=== PATIENT | male | born 1960 | race Two or more races ===

== ENCOUNTER 2020-07-23 10:57 | Emergency (ER) | payer SELFPAY ==
[~2020-07-23] VITALS: Ht 160 cm; Wt 54.5 kg
[2020-07-23 12:01] LABS: BILIRUBIN,URINE NEGATIVE (NEG); CLARITY,URINE CLEAR; COLOR,URINE YELLOW; NITRITE,URINE NEGATIVE (NEG); PH,URINE 5.5 (<5.0-8.0); PROTEIN,URINE NEGATIVE (NEG-TRACE); UROBILINOGEN,URINE 0.2 mg/dL (0.2 mg/dL)
[2020-07-23 12:13] LABS: BACTERIA,URINE FEW /HPF (0-FEW); RBC,URINE OCC /HPF (0-2)
--- NOTE | 2020-07-23 13:08 | RAD ---
Examination: CT ABDOMEN PELVIS WO CONTRAST History: bilateral flank pain / Comparison/Correlation: None Findings: Axial images of the abdomen and pelvis were obtained without contrast. Sagittal and coronal reformatted images were provided. The visualized lung bases are clear. Liver, spleen, pancreas, adrenal glands, and kidneys are normal. No enlarged abdominal or pelvic lymph nodes. Gallbladder fossa is unremarkable. No radiopaque collecting system calculi. Large quantity of stool involves the colon. Fecalization of the distal ileum and terminal ileum is evident. No bowel obstruction or extraluminal gas. Appendix is normal. No inflammation about the cecum or terminal ileum. Mild prostatomegaly noted. Urinary bladder is unremarkable. Bony structures unremarkable. Impression: Fecalization of the distal ileum and terminal ileum is present and may represent stasis. Moderate to large quantity of no acute inflammatory findings. No radiopaque lithiasis or infection. PQRS Compliance Statement: One or more of the following individualized dose reduction techniques were utilized for this examination: 1. Automated exposure control 2. Adjustment of the mA and/or kV according to patient size 3. Use of iterative reconstruction technique Electronically signed by: Clovis Rodriguez MD (07/23/2020 1:05 PM) [id number]
[2020-07-23] MEDS ORDERED: BISACODYL 5 MG TABLET.DR. PO STA (13:20)
[2020-07-23] MEDS ORDERED: KETOROLAC 30 MG/ML VIAL. IVP ONE (14:00)
[2020-07-23] MEDS ORDERED: MAGNESIUM CITRATE 296 ML SOLUTION. PO ONE (14:00)
--- NOTE | 2020-07-23 14:29 | PHYS DOC ---
Past Medical History Past Medical History: Unknown Past Surgical History: No Surgical History Smoking Status: Never Smoker Alcohol Use: Occasionally General Adult EDM: Chief Complaint: FLANK PAIN HPI: HPI: Patient is a 59 year old 5-year-old male patient who presents to the ED today complaining of bilateral flank pain rated as moderate that began 3 days ago. Patient denies anything specifically exacerbating or relieving the flank pain. Denies any nausea vomiting. 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 Review of Systems: Review of Systems: Constitutional: Denies fever or chills. [] Eyes: Denies change in visual acuity. [] HENT: Denies nasal congestion or sore throat. [] Respiratory: Denies cough or shortness of breath. [] Cardiovascular: Denies chest pain or edema. [] GI: Denies abdominal pain, nausea, vomiting, bloody stools or diarrhea. [] : Reports bilateral flank pain. Denies dysuria. [] Musculoskeletal: Denies back pain or joint pain. [] Integument: Denies rash. [] Neurologic: Denies headache, focal weakness or sensory changes. [] Psychiatric: Denies depression or anxiety. [] Heart Score: Risk Factors: Risk Factors: DM, Current or recent (<one month) smoker, HTN, HLP, family history of CAD, obesity. Risk Scores: Score 0 - 3: 2.5% MACE over next 6 weeks - Discharge Home Score 4 - 6: 20.3% MACE over next 6 weeks - Admit for Clinical Observation Score 7 - 10: 72.7% MACE over next 6 weeks - Early Invasive Strategies Current Medications: Current Medications Medications (Trade) Dose Ordered Sig/Sally Start Time Stop Time Status Last Admin Dose Admin Bisacodyl (Dulcolax Tab) 10 mg 1X STAT 07/23/20 13:20 07/23/20 13:23 DC 07/23/20 14:15 10 MG Ketorolac Tromethamine (Toradol 30mg Vial) 30 mg 1X ONCE 07/23/20 14:00 07/23/20 14:01 DC 07/23/20 14:16 30 MG Magnesium Citrate (Citroma) 296 ml 1X ONCE 07/23/20 14:00 07/23/20 14:01 DC 07/23/20 14:15 296 ML Allergies: Allergies: Allergies Coded Allergies Type Severity Reaction Last Updated Verified No Known Drug Allergies 07/23/20 No Physical Exam: PE: Constitutional: Well developed, well nourished, no acute distress, non-toxic appearance. [] HENT: Normocephalic, atraumatic, bilateral external ears normal, oropharynx moist, no oral exudates, nose normal. [] Eyes: PERRLA, EOMI, conjunctiva normal, no discharge. [] Neck: Normal range of motion, no tenderness, supple, no stridor. [] Cardiovascular:Heart rate regular rhythm, no murmur [] Lungs & Thorax: Bilateral breath sounds clear to auscultation [] Abdomen: Bowel sounds normal, soft, no tenderness, no masses, no pulsatile masses. [] Skin: Warm, dry, no erythema, no rash. [] Back: No tenderness, no CVA tenderness. [] Extremities: No tenderness, no cyanosis, no clubbing, ROM intact, no edema. [] Neurologic: Alert and oriented X 3, normal motor function, normal sensory function, no focal deficits noted. [] Psychologic: Affect normal, judgement normal, mood normal. [] Current Patient Data: Labs: Laboratory Tests Test 07/23/20 11:00 Urine Collection Type Unknown Urine Color Yellow Urine Clarity Clear Urine pH 5.5 (<5.0-8.0) Urine Specific [place] 1.025 (1.000-1.030) Urine Protein Negative mg/dL (NEG-TRACE) Urine Glucose (UA) Negative mg/dL (NEG) Urine Ketones (Stick) Negative mg/dL (NEG) Urine Blood Small (NEG) Urine Nitrite Negative (NEG) Urine Bilirubin Negative (NEG) Urine Urobilinogen Dipstick 0.2 mg/dL (0.2 mg/dL) Urine Leukocyte Esterase Negative (NEG) Urine RBC Occ /HPF (0-2) Urine WBC 1-4 /HPF (0-4) Urine Squamous Epithelial Cells Occ /LPF Urine Bacteria Few /HPF (0-FEW) Urine Mucus Marked /LPF Vital Signs: Vital Signs Date Time Temp Pulse Resp B/P (MAP) Pulse Ox O2 Delivery O2 Flow Rate FiO2 07/23/20 12:13 98.1 63 18 208/100 (136) 99 Room Air 98.1 EKG: EKG: [] Radiology/Procedures: Radiology/Procedures: []PROCEDURE: CT ABDOMEN PELVIS WO CONTRAST Examination: CT ABDOMEN PELVIS WO CONTRAST History: bilateral flank pain / Comparison/Correlation: None Findings: Axial images of the abdomen and pelvis were obtained without contrast. Sagittal and coronal reformatted images were provided. The visualized lung bases are clear. Liver, spleen, pancreas, adrenal glands, and kidneys are normal. No enlarged abdominal or pelvic lymph nodes. Gallbladder fossa is unremarkable. No radiopaque collecting system calculi. Large quantity of stool involves the colon. Fecalization of the distal ileum and terminal ileum is evident. No bowel obstruction or extraluminal gas. Appendix is normal. No inflammation about the cecum or terminal ileum. Mild prostatomegaly noted. Urinary bladder is unremarkable. Bony structures unremarkable. Impression: Fecalization of the distal ileum and terminal ileum is present and may represent stasis. Moderate to large quantity of no acute inflammatory findings. No radiopaque lithiasis or infection. RS Compliance Statement: One or more of the following individualized dose reduction techniques were utilized for this examination: 1. Automated exposure control 2. Adjustment of the mA and/or kV according to patient size 3. Use of iterative reconstruction technique Electronically signed by: Clovis Dempsey MD (07/23/2020 1:05 PM) [id number] DICTATED and SIGNED BY: CLOVIS DEMPSEY MD DATE: 07/23/20 1556 Course & Med Decision Making: Course & Med Decision Making Pertinent Labs and Imaging studies reviewed. (See chart for details) This is a 59-year-old male patient presenting to the ED today with bilateral flank pain that began 3 days ago. Urine analysis negative for infection, CT of the abdomen and pelvic was noted for moderate constipation. Patient was given mag citrate and Dulcolax. Educated on constipation prevention as well as management. Follow-up with his own PCP in 1 to 2 weeks. Rach Disclaimer: Rach Disclaimer: This electronic medical record was generated, in whole or in part, using a voice recognition dictation system. Departure Departure Impression: Primary Impression: Constipation Qualified Codes: K59.00 - Constipation, unspecified Disposition: 01 DC HOME SELF CARE/HOMELESS Condition: STABLE Referrals: NO PCP (PCP) MERY COOPER MD follow up in one week Patient Instructions: Constipation, Adult, [id number] Additional Instructions: You were evaluated in the emergency room and noted to be very constipated. Please increase your dietary fiber intake as well as water intake. Consider taking MiraLAX every day. Take the prescribed medication as ordered. Follow-up with your own doctor in 1 to 2 weeks Scripts Polyethylene Glycol 3350 (MIRALAX) 119 Gm Powder 17 GM PO DAILY for constipation, #255 GM 0 Refills dissolve in water Prov: FATOUMATA HERZOG APRN 07/23/20 Magnesium Citrate (MAGNESIUM CITRATE) 296 Ml Solution 296 ML PO ONCE, #296 ML Prov: FATOUMATA HERZOG APRN 07/23/20 FATOUMATA HERZOG APRN Jul 23, 2020 14:29
[2020-07-23] MEDS ORDERED: MAGN296S68 PO (14:32)
[2020-07-23] MEDS ORDERED: POLY119P4 PO (14:32)
[2020-07-24 14:05] VITALS: BP 196/77
== END 2020-07-23 14:44 | disposition home or self-care (01) ==
LOC: ER 10:57
DX: K59.00 Constipation, unspecified (principal)
CPT/HCPCS: 74176; 81001; 96374; 99285; J1885